=== PATIENT | female | born 1975 | race Hispanic/Latino ===

== ENCOUNTER 2021-01-10 22:04 | Emergency (ER) | payer OTHER, SELFPAY ==
[2021-01-10 22:05] VITALS: BP 160/93; PULSE 106; RESP 18; TEMP 38; O2SAT 100
[2021-01-10 23:14] VITALS: BP 144/74; PULSE 87; RESP 16; TEMP 36.9; O2SAT 100
[2021-01-10] MEDS: predniSONE 20 MG TABLET 60 MG PO (23:39)
[2021-01-10] MEDS: FAMOTIDINE 20 MG TABLET PO (23:40)
[2021-01-10] MEDS: diphenhydrAMINE HCl CAP 25 MG CAPSULE PO (23:40)
--- NOTE | 2021-01-11 | ED.GENADULT ---
HPI - General Adult General Chief complaint: Allergic Reaction Stated complaint: short of breath Time Seen by Provider: 01/10/21 22:57 Source: RN notes reviewed History of Present Illness HPI narrative: Patient presents to emergency department from home for allergic reaction. 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 states that following dinner they got to the park and was like to the park when she began to feel diffuse itching throughout her body with a rash noted on her arms and legs and a feeling of swelling to her throat she states that these symptoms have improved at this time she denies any swelling of the lips or tongue shortness of breath chest pain or any other symptoms Related Data Allergies Allergy/AdvReac Type Severity Reaction Status Date / Time shellfish derived Allergy Swelling Verified 01/10/21 22:12 of Lip/Tongue/Throat seafood Allergy Swelling Uncoded 01/10/21 22:12 of Lip/Tongue/Throat Review of Systems Review of Systems: Gen.: Denies fevers or chills ENT: Denies congestion Respiratory: Denies shortness of breath or cough CV: Denies chest pain or palpitations GI: Denies abdominal pain nausea, emesis or diarrhea Musculoskeletal: Denies back pain or muscle pain Neuro: Denies numbness, tingling, weakness or focal weakness Skin: Reports rash to arms and legs Except as documented, all other systems reviewed and negative [facility] Past Medical History Medical History (Updated 01/11/21 @ 00:02 by Hemanth Lauren DO) Asthma Social History Social History (Updated 01/11/21 @ 00:01 by Hemanth Lauren DO) Smoking status: Never smoker Exam Narrative: APPEARANCE: No acute distress, nontoxic, resting in bed EYES: EOMI HEENT: Normocephalic, atraumatic, no swelling of lips or tongue airway patent tolerating own secretions RESPIRATORY: No respiratory distress Clear to auscultation bilaterally with no rhonchi wheezing or rales. CARDIOVASCULAR: Regular rate and rhythm without murmurs rubs or gallops. ABDOMINAL: Soft, nontender, nondistended, no rebound or guarding MUSCULOSKELETAl: Moves all extremities. No clubbing, cyanosis or edema. NEURO: Awake and alert. Following commands, speech normal, no focal deficits SKIN:: Warm, dry. Mild urticarial rash to bilateral hands PSYCHIATRIC: Normal affect/mood, Course Course Emergency Course: Patient states all symptoms have resolved at this time Discussed with patient results of workup and diagnosis. Discussed need for follow-up with primary care, proper use of medication, and reasons to return to the emergency department. Patient understands and agrees to current treatment plan Vital Signs Vital signs: Vital Signs Temperature 100.4 F H 01/10/21 22:05 Pulse Rate 106 H 01/10/21 22:05 Respiratory Rate 18 01/10/21 22:05 Blood Pressure 160/93 H 01/10/21 22:05 Pulse Oximetry 100 01/10/21 22:05 Temperature 98.5 F 01/10/21 23:14 Pulse Rate 87 01/10/21 23:14 Respiratory Rate 16 01/10/21 23:14 Blood Pressure 144/74 H 01/10/21 23:14 Pulse Oximetry 100 01/10/21 23:14 Medical Decision Making Vital Signs Vital Signs: Vital Signs Temperature 100.4 F H 01/10/21 22:05 Pulse Rate 106 H 01/10/21 22:05 Respiratory Rate 18 01/10/21 22:05 Blood Pressure 160/93 H 01/10/21 22:05 Pulse Oximetry 100 01/10/21 22:05 Temperature 98.5 F 01/10/21 23:14 Pulse Rate 87 01/10/21 23:14 Respiratory Rate 16 01/10/21 23:14 Blood Pressure 144/74 H 01/10/21 23:14 Pulse Oximetry 100 01/10/21 23:14 Discharge Plan Discharge Clinical Impression: Allergic reaction Patient Disposition: Home, Self-Care Condition: Stable Instructions: Antibiotic Form, General Allergic Reaction (ED) Additional Instructions: Return for swelling of lips or tongue shortness of breath rash or any other symptoms of concern Prescript
[2021-01-11 00:43] VITALS: BP 139/91; PULSE 88; RESP 16; TEMP 36.9; O2SAT 99
== END 2021-01-11 00:45 | disposition home or self-care (01) ==
PROVIDERS: Emergency Provider Emergency Medicine
DX: T78.40XA Allergy, unspecified, initial encounter (principal); J45.909 Unspecified asthma, uncomplicated; Z91.013 Allergy to seafood
CPT/HCPCS: 99283; A9270; J7512